=== PATIENT | female | born 1955 | race Caucasian/White ===

== ENCOUNTER → 2018-10-07 | Outpatient (CLI) | payer OTHER | END | disposition home or self-care (01) | LOC: RADMN 08:38 | PROVIDERS: ATTEND Internal Medicine Cardiovascular Disease | DX: I10 Essential (primary) hypertension (principal); I51.81 Takotsubo syndrome; R94.31 Abnormal electrocardiogram [ECG] [EKG] | CPT/HCPCS: 78472; A9560 ==